=== PATIENT | male | born 1995 | race African-American/Black ===

== ENCOUNTER 2021-01-26 19:52 | Emergency (ER) | payer OTHER ==
[~2021-01-26] VITALS: Ht 172.7 cm; Wt 60.0 kg
[2021-01-26 22:03] VITALS: BP 121/66
== END 2021-01-26 22:05 | disposition home or self-care (01) ==
LOC: ER 19:52
DX: S01.81XA Laceration without foreign body of other part of head, initial encounter (principal); Y35.893A Legal intervention involving other specified means, suspect injured, initial encounter; Y93.89 Activity, other specified; Y92.89 Other specified places as the place of occurrence of the external cause
CPT/HCPCS: 12013; 99283